=== PATIENT | male | born 1960 | race Caucasian/White ===

== ENCOUNTER 2017-03-19 08:55 | Emergency (ER) | payer MEDICARE, MEDICAID ==
[2017-03-19 09:22] LABS: #Basophils 0.1 thou/uL (0.0-0.2); #Lymphocytes 3.1 thou/uL (1.20-3.40); #Monocytes 0.6 thou/uL (0.11-0.59); #Neutrophils 9.6 thou/uL (1.40-6.50); %Basophils 0.7 % (0.0-1.0); %Eosinophils 0.1 % (0.0-10.0); %Monocytes 4.7 % (0.0-10.0); %Neutrophils 71.5 % (42.0-75.0); Hemoglobin 17.6 g/dL (14.0-18.0); Mean Corpuscular HGB CONC 33.3 g/dL (32.0-36.0); Mean Corpuscular Hemoglobin 32.3 pg (27.0-31.0); Mean Corpuscular Volume 97.2 fl (80.0-94.0); Mean Platelet Volume 7.2 fL (7.4-10.4); Platelet Count 318 thou/uL (130-400); RBC Distribution Width 13.4 % (11.5-14.5); Red Blood Cell (RBC) Count 5.44 mill/uL (4.70-6.10); White Blood Cell (WBC) Count 13.5 thou/uL (4.8-10.8)
[2017-03-19 09:27] LABS: Anion Gap 20 mmol/L (10-20); BUN (Urea Nitrogen) 8 mg/dL (8.4-25.7); Bilirubin, Total 0.4 mg/dL (0.2-1.2); Calc. Creatinine Clearance 0 mL/min (70-130); Calcium 9.6 mg/dL (7.8-10.44); Carbon Dioxide 19 mmol/L (22-29); Chloride 109 mmol/L (98-107); Estimated GFR-MDRD 71; Glucose 129 mg/dL (70-105); Potassium 4.3 mmol/L (3.5-5.1); Protein, Total 7.9 g/dL (6.0-8.3); Sodium 143 mmol/L (136-145)
[2017-03-19 09:28] LABS: ALT (SGPT) 28 U/L (8-55); AST (SGOT) 24 U/L (5-34); Albumin 4.4 g/dL (3.5-5.0); Alkaline Phosphatase 103 U/L (40-150); Globulin 3.5 g/dL (2.4-3.5)
[2017-03-19 09:29] LABS: CKMB 0.8 ng/mL (0-6.6); Troponin I Less than 0.010 ng/mL (< 0.028)
[2017-03-19 09:30] LABS: INR-International Normal Ratio 0.9; PTT 23.4 SEC (22.9-36.1); Prothrombin Time 12.7 SEC (12.0-14.7)
[2017-03-19] MEDS ORDERED: Metoclopramide HCl 10 MG/2 ML VIAL ONE (09:32)
[2017-03-19 09:44] LABS: Lipase 21 U/L (8-78)
[2017-03-19] MEDS ORDERED: HYDROcodone/Acetaminophen 10/325 mg Tablet ONE (10:01)
--- NOTE | 2017-03-19 12:44 | RAD ---
CHEST 1 VIEW: HISTORY: Chest pain. COMPARISON: Chest 1 view, 07/01/10. FINDINGS: There are faint bibasilar opacities. No pneumothorax or effusion. Cardiac silhouette and mediastin al contours are similar. No acute osseous abnormality. IMPRESSION: Faint bibasilar opacities could reflect atelectasis or infection. Atelectasis is favored. POS: [facility]
== END 2017-03-19 10:08 | disposition left against medical advice (07) ==
LOC: BURERS 08:55
DX: G89.29 Other chronic pain (principal); M54.5 Low back pain; R11.2 Nausea with vomiting, unspecified; K21.9 Gastro-esophageal reflux disease without esophagitis; I10 Essential (primary) hypertension; F17.210 Nicotine dependence, cigarettes, uncomplicated; Z86.73 Personal history of transient ischemic attack (TIA), and cerebral infarction without residual deficits
CPT/HCPCS: 36415; 71010; 80053; 82553; 83690; 83880; 84484; 85025; 85610; 85730; 93005; 94760; 96365; J2765

== ENCOUNTER 2017-04-18 14:47 | Outpatient (CLI) | payer MEDICARE, MEDICAID ==
[2017-04-18 18:55] LABS: Hep C IgG Ab Reflex HepC Qnt (NonReactive); Hep C Index 11.81 S/CO (0-0.79)
== END 2017-04-18 14:48 | disposition home or self-care (01) ==
LOC: HPCALD 14:47
PROVIDERS: ATTEND Family Medicine
DX: Z11.59 Encounter for screening for other viral diseases (principal)
CPT/HCPCS: 36415; 86803; 87522

== ENCOUNTER 2017-07-06 12:02 | Outpatient (CLI) | payer MEDICARE, MEDICAID ==
[2017-07-06 12:56] LABS: Hemoglobin 16.7 g/dL (14.0-18.0); Mean Corpuscular HGB CONC 33.8 g/dL (32.0-36.0); Mean Corpuscular Hemoglobin 33.2 pg (27.0-31.0); Mean Corpuscular Volume 98.2 fl (80.0-94.0); Mean Platelet Volume 6.3 fL (7.4-10.4); Platelet Count 387 thou/uL (130-400); Red Blood Cell (RBC) Count 5.03 mill/uL (4.70-6.10); White Blood Cell (WBC) Count 6.9 thou/uL (4.8-10.8)
[2017-07-06 13:06] LABS: INR-International Normal Ratio 0.9
[2017-07-06 13:37] LABS: Amphetamine Not Detected (NotDetected); Barbiturates Screen Not Detected (NotDetected); Benzodiazepine Screen Not Detected (NotDetected); Cocaine Metabolite Screen Not Detected (NotDetected); Medtox Control Line Valid? VALID (VALID); Methadone Not Detected (NotDetected); Methamphetamine Not Detected (NotDetected); Opiate Screen Not Detected (NotDetected); Oxycodone Screen Not Detected (NotDetected); Phencyclidine (PCP) Not Detected (NotDetected); THC/Cannabinoid Screen Not Detected (NotDetected); Tricyclic Screen Not Detected (NotDetected)
[2017-07-06 14:40] LABS: ALT (SGPT) 38 U/L (8-55); AST (SGOT) 29 U/L (5-34); Albumin 4.6 g/dL (3.5-5.0); Alcohol Less than 10 mg/dL (Less than 10); Alkaline Phosphatase 120 U/L (40-150); Anion Gap 10 mmol/L (10-20); BUN (Urea Nitrogen) 7 mg/dL (8.4-25.7); Bilirubin, Total 0.3 mg/dL (0.2-1.2); Calc. Creatinine Clearance 0 mL/min (70-130); Calcium 9.6 mg/dL (7.8-10.44); Carbon Dioxide 26 mmol/L (22-29); Chloride 104 mmol/L (98-107); Estimated GFR-MDRD Greater than 90; Globulin 3.7 g/dL (2.4-3.5); Lipase 19 U/L (8-78); Protein, Total 8.3 g/dL (6.0-8.3); Sodium 136 mmol/L (136-145)
[2017-07-06 15:04] LABS: Glucose 48 mg/dL (70-105)
[2017-07-06 15:42] LABS: Thyroid Stimulating Hormone 1.7923 uIU/mL (0.35-4.94)
[2017-07-06 18:08] LABS: HBSAB Concentration 0.93 mIU/mL; HBSAg Index 0.27 S/CO (0-0.99); HIV (1/2) Antibody/Antigen Non-Reactive (NonReactive); HIV 1/2 INDEX 0.19 S/CO (<1.00); Hep B Surf AB Non-Reactive (NonReactive); Hep B Surf Ag Non-Reactive S/CO (NonReactive)
[2017-07-07 12:04] LABS: Ref Lab Test Ordered FIBROSPECT; Reference Lab Name PROMETHEUS
[2017-07-08 09:13] LABS: Hepatitis A IgM ABS Negative (Negative); Hepatitis A Total ABS Positive (Negative)
== END 2017-07-06 12:03 | disposition home or self-care (01) ==
LOC: BURLAB 12:02
PROVIDERS: ATTEND Internal Medicine
DX: B18.2 Chronic viral hepatitis C (principal); Z79.899 Other long term (current) drug therapy
CPT/HCPCS: 36415; 80053; 80306; 80307; 82105; 83690; 84443; 85027; 85610; 86706; 86709; 87340; 87389; 87522; 87902

== ENCOUNTER 2017-07-07 09:21 | Outpatient (CLI) | payer MEDICARE, MEDICAID ==
--- NOTE | 2017-07-07 20:22 | CT ---
CT ABDOMEN AND PELVIS WITH CONTRAST 07/07/[address] of the abdomen and pelvis was obtained after giving IV contrast. Axial slices were acquire d, then coronal and sagittal reconstructions were done. The lung bases are clear except for some dependent atelectasis. The liver is a little generous in si ze. There is a 4.2 cm hypodense mass in the posterior portion of the right lobe of the liver. It has intense peripheral enhancement that appears to be filling in towards the center. While a delayed im age showing it completely filled in would have been helpful, the findings are fairly classic for a h emangioma. The gallbladder contains multiple low density structures in it that are presumed to be ch olesterol stones. They are noncalcified. The spleen, pancreas, adrenal glands, kidneys, and abdomina l aorta showed no acute findings. There is arteriosclerotic change in the aorta. The bowel shows no distention to suggest obstruction. No bowel wall thickening or inflammatory douglas es are seen in association with bowel. There is no free air or free fluid. CT of the pelvis showed no pelvic masses, fluid collections, or inflammatory changes. IMPRESSION: 1. Mildly generous hepatic size. 4.2 cm mass, posterior right lobe, that is almost certainly a hemangioma. 2. Gallstones. POS: [facility]
== END 2017-07-07 09:22 | disposition home or self-care (01) ==
LOC: BURCT 09:21
PROVIDERS: ATTEND Internal Medicine
DX: R11.2 Nausea with vomiting, unspecified (principal); B18.2 Chronic viral hepatitis C; K80.20 Calculus of gallbladder without cholecystitis without obstruction
CPT/HCPCS: 36415; 74177; 80053; 80306; 80307; 82105; 83690; 84443; 85027; 85610; 86706; 86709; 87340; 87389; 87522; 87902

== ENCOUNTER 2019-08-05 14:33 | Emergency (ER) | payer MEDICAID, MEDICARE ==
[2019-08-05] MEDS ORDERED: Pantoprazole 40 MG VIAL ONE (14:51)
[2019-08-05] MEDS ORDERED: Ketorolac Tromethamine 30 MG/ML VIAL ONE (14:51)
[2019-08-05 15:13] LABS: #Basophils 0.1 thou/uL (0.0-0.2); #Eosinphils 0.2 thou/uL (0.0-0.7); #Lymphocytes 3.5 thou/uL (1.20-3.40); #Monocytes 0.3 thou/uL (0.11-0.59); #Neutrophils 4.3 thou/uL (1.40-6.50); %Basophils 1.1 % (0.0-1.0); %Eosinophils 1.9 % (0.0-10.0); %Lymphocytes 41.6 % (21.0-51.0); %Monocytes 3.9 % (0.0-10.0); %Neutrophils 51.5 % (42.0-75.0); Hemoglobin 16.7 g/dL (14.0-18.0); MDiff Complete? YES; Macrocytosis MODERATE=16-30 cells (100X) (0-5/hpf); Mean Corpuscular HGB CONC 33.6 g/dL (32.0-36.0); Mean Corpuscular Hemoglobin 34.5 pg (27.0-31.0); Mean Platelet Volume 6.3 fL (7.4-10.4); Platelet Count 274 thou/uL (130-400); RBC Distribution Width 12.3 % (11.5-14.5); Red Blood Cell (RBC) Count 4.84 mill/uL (4.70-6.10); White Blood Cell (WBC) Count 8.4 thou/uL (4.8-10.8)
[2019-08-05 15:15] LABS: ALT (SGPT) 21 U/L (8-55); AST (SGOT) 19 U/L (5-34); Albumin 4.7 g/dL (3.5-5.0); Alkaline Phosphatase 82 U/L (40-110); Anion Gap 15 mmol/L (10-20); BUN (Urea Nitrogen) 6 mg/dL (8.4-25.7); Bilirubin, Total 0.5 mg/dL (0.2-1.2); Calc. Creatinine Clearance 0 mL/min (70-130); Calcium 9.7 mg/dL (7.8-10.44); Carbon Dioxide 26 mmol/L (22-29); Chloride 101 mmol/L (98-107); Estimated GFR-MDRD 73; Globulin 3.2 g/dL (2.4-3.5); Glucose 108 mg/dL (70-105); Lipase 45 U/L (8-78); Potassium 4.2 mmol/L (3.5-5.1); Protein, Total 7.9 g/dL (6.0-8.3); Sodium 138 mmol/L (136-145)
[2019-08-05] MEDS ORDERED: Morphine 4 MG/ML VIAL ONE (15:16)
== END 2019-08-05 15:56 | disposition home or self-care (01) ==
LOC: BURERS 14:33
DX: K80.50 Calculus of bile duct without cholangitis or cholecystitis without obstruction (principal); M19.90 Unspecified osteoarthritis, unspecified site; K21.9 Gastro-esophageal reflux disease without esophagitis; I10 Essential (primary) hypertension; F17.210 Nicotine dependence, cigarettes, uncomplicated; Z79.891 Long term (current) use of opiate analgesic; Z86.73 Personal history of transient ischemic attack (TIA), and cerebral infarction without residual deficits
CPT/HCPCS: 80053; 83690; 85025; 96374; 96375; C9113; J1885; J2270

== ENCOUNTER 2019-08-06 10:53 | Emergency (ER) | payer MEDICAID, MEDICARE ==
[2019-08-06] MEDS ORDERED: Sodium Chloride 0.9% 100 ML ONE (11:08)
[2019-08-06] MEDS ORDERED: Piperacillin/Tazobactam 4.5 GM VIAL ONE (11:08)
[2019-08-06] MEDS ORDERED: Morphine 2 MG/ML SYRINGE ONE (11:09)
[2019-08-06] MEDS ORDERED: Morphine 4 MG/ML VIAL ONE (11:09)
[2019-08-06 11:19] LABS: #Basophils 0.1 thou/uL (0.0-0.2); #Eosinphils 0.1 thou/uL (0.0-0.7); #Lymphocytes 3.1 thou/uL (1.20-3.40); #Monocytes 0.4 thou/uL (0.11-0.59); %Basophils 1.1 % (0.0-1.0); %Eosinophils 1.1 % (0.0-10.0); %Lymphocytes 46.8 % (21.0-51.0); %Monocytes 5.9 % (0.0-10.0); %Neutrophils 45.1 % (42.0-75.0); Hemoglobin 16.7 g/dL (14.0-18.0); Mean Corpuscular Hemoglobin 35.2 pg (27.0-31.0); Mean Platelet Volume 6.4 fL (7.4-10.4); Platelet Count 256 thou/uL (130-400); RBC Distribution Width 12.2 % (11.5-14.5); Red Blood Cell (RBC) Count 4.73 mill/uL (4.70-6.10); White Blood Cell (WBC) Count 6.5 thou/uL (4.8-10.8)
[2019-08-06 11:31] LABS: ALT (SGPT) 20 U/L (8-55); AST (SGOT) 19 U/L (5-34); Albumin 4.4 g/dL (3.5-5.0); Alkaline Phosphatase 76 U/L (40-110); Anion Gap 9 mmol/L (10-20); BUN (Urea Nitrogen) 6 mg/dL (8.4-25.7); Bilirubin, Total 0.6 mg/dL (0.2-1.2); Calc. Creatinine Clearance 0 mL/min (70-130); Calcium 9.4 mg/dL (7.8-10.44); Carbon Dioxide 28 mmol/L (22-29); Chloride 102 mmol/L (98-107); Estimated GFR-MDRD 74; Globulin 2.9 g/dL (2.4-3.5); Glucose 90 mg/dL (70-105); Lipase 18 U/L (8-78); Potassium 4.3 mmol/L (3.5-5.1); Protein, Total 7.3 g/dL (6.0-8.3); Sodium 135 mmol/L (136-145)
[2019-08-06 11:38] LABS: MDiff Complete? YES; Macrocytosis SLIGHT = 6-15 cells (100X) (0-5/hpf); Platelet Morphology Comment Appears Adequate
--- NOTE | 2019-08-06 12:14 | ULT ---
RIGHT UPPER QUADRANT ULTRASOUND: Date: 08/06/19 Ultrasonography of the right upper quadrant was performed for evaluation of worsening right upper avinash drant pain. The patient was seen in the emergency room yesterday. FINDINGS: The liver is upper normal in size measuring 15.0 cm in length. Internally, no sign of mass or dilated duct. The major finding on this study is a grossly abnormal gallbladder. The gallbladder contains multiple gallstones and the wall is quite thick measuring up to 7.0 mm in thickness. The common bile duct is d ilated, measuring 1.0 cm in thickness. No stones seen within the common bile duct, though all portion s were not imaged well. The right kidney appears normal and is 10.3 cm long. The visible portions of the pancreas were unrema rkable, but parts were obscured by gas. IMPRESSION: Multiple gallstones with a very thick gallbladder wall and dilated common bile duct. Acute cholecysti tis on top of chronic cholecystitis is likely present. A positive Aguilar's sign was present during th is examination. Findings discussed with Dr. Ponce at 1045 hours on 08/06/19. CODE CR. POS: [facility]
== END 2019-08-06 12:04 | disposition short-term general hospital (02) ==
LOC: BURERS 10:53
DX: K81.0 Acute cholecystitis (principal); F17.210 Nicotine dependence, cigarettes, uncomplicated; Z79.899 Other long term (current) drug therapy
CPT/HCPCS: 76705; 80053; 83605; 83690; 85025; 96365; 96375; J2270; J2543; J3490

== ENCOUNTER 2019-11-07 09:17 | Outpatient (CLI) | payer MEDICARE ==
--- NOTE | 2019-11-07 21:05 | RAD ---
LUMBAR SPINE 11/07/19 Comparison is made with prior study of 05/16/08. Multiple views were obtained, both oblique views and flexion and extension lateral views. Degenerativ e changes are seen at each level consisting of osteophytes. The osteophytes are a bit larger today th an they were in 2007. No fracture, dislocation, or disc space narrowing was seen. Some mild facet art hritis is suggested, particularly in the lower two lumbar levels. With flexion and extension, there w as no abnormal motion. The distal aorta and proximal iliac arteries are densely calcified. The SI is[place] nts were symmetrical. IMPRESSION: Degenerative changes but no acute findings. POS: HOME
--- NOTE | 2019-11-07 21:06 | RAD ---
LEFT SHOULDER ONE VIEW: 09/07/20 A single view shows no fracture, dislocation, or AC joint widening. There is no particular arthritic change or periarticular calcification. The adjacent lung is clear. IMPRESSION: No acute findings. POS: [facility]
--- NOTE | 2019-11-07 21:07 | RAD ---
RIGHT SHOULDER ONE VIEW: 11/07/19 Comparison is made with the left shoulder. No fracture, dislocation, or AC joint widening was seen. T here may be some minimal arthritic change in the AC joint. The adjacent lung is clear. IMPRESSION: No acute findings. POS: HOME
== END 2019-11-07 09:18 | disposition home or self-care (01) ==
LOC: BURRAD 09:17
DX: M25.512 Pain in left shoulder (principal); M25.511 Pain in right shoulder; M54.5 Low back pain; M47.816 Spondylosis without myelopathy or radiculopathy, lumbar region
CPT/HCPCS: 72100

== ENCOUNTER 2021-06-02 09:03 | Outpatient (CLI) | payer MEDICARE, MEDICAID | END 2021-06-02 09:04 | disposition home or self-care (01) | LOC: BURCT 09:03 | PROVIDERS: ATTEND Neurological Surgery | DX: M54.5 Low back pain (principal); M79.9 Soft tissue disorder, unspecified | CPT/HCPCS: 72131 ==

== ENCOUNTER 2021-10-05 10:45 | Outpatient (CLI) | payer MEDICARE, MEDICAID | END 2021-10-05 10:46 | disposition home or self-care (01) | LOC: BURCT 10:45 | PROVIDERS: ATTEND Neurological Surgery | DX: M54.50 Low back pain, unspecified (principal) | CPT/HCPCS: 72131 ==

== ENCOUNTER 2023-07-07 09:27 | Emergency (ER) | payer MEDICARE, OTHER ==
[2023-07-07 10:35] LABS: SARS-CoV-2 NAA Rapid Test Not Detected (NotDetected)
== END 2023-07-07 10:44 | disposition home or self-care (01) ==
LOC: BURERS 09:27
DX: B34.9 Viral infection, unspecified (principal); K92.2 Gastrointestinal hemorrhage, unspecified; G89.29 Other chronic pain; M54.50 Low back pain, unspecified; F17.210 Nicotine dependence, cigarettes, uncomplicated; Z20.822 Contact with and (suspected) exposure to COVID-19; Z86.73 Personal history of transient ischemic attack (TIA), and cerebral infarction without residual deficits
CPT/HCPCS: 99283